=== PATIENT | female | born 1975 | race Caucasian/White ===

== ENCOUNTER 2017-08-29 09:46 | Emergency (ER) | payer OTHER, MEDICAID ==
[~2017-08-29] VITALS: Ht 154.9 cm; Wt 108.9 kg
[2017-08-29] MEDS ORDERED: HYDROCODONE-AP1 EAC6 PO (11:46)
[2017-08-29 12:38] VITALS: BP 105/54
== END 2017-08-29 12:39 | disposition home or self-care (01) ==
LOC: M.ERS 09:46
DX: M25.551 Pain in right hip (principal); M25.561 Pain in right knee; J45.909 Unspecified asthma, uncomplicated; E11.9 Type 2 diabetes mellitus without complications

== ENCOUNTER 2017-12-23 12:01 | Inpatient (IN) | payer OTHER, MEDICAID ==
[~2017-12-23] VITALS: Ht 154.9 cm; Wt 110.2 kg
[2017-12-23] VITALS (14 sets, daily range): BP systolic 116–160; BP diastolic 73–97
[~2017-12-23 12:01] MED LIST: HYDROCODONE-AP1 EAC6 PO
[2017-12-23 12:31] LABS: ABSOLUTE BASOPHILS 0.1 thou/uL (0.0-0.2); ABSOLUTE EOSINOPHILS 0.2 thou/uL (0.0-0.7); ABSOLUTE LYMPHOCYTES 2.5 thou/uL (0.8-5.3); ABSOLUTE MONOCYTES 0.6 thou/uL (0.0-1.2); ABSOLUTE NEUTROPHILS 6.1 thou/uL (1.6-8.1); BASOPHILS 0.9 %; HEMOGLOBIN 13.3 gm/dL (12.0-15.0); LYMPHOCYTES 26.7 %; MCH 27.4 pg (26.0-34.0); MCHC 33.4 g/dL (28.0-37.0); MCV 82.2 fL (80.0-100.0); MONOCYTES 6.3 %; MPV 7.6 fl. (7.2-11.1); NUCLEATED RBCS 0 /100WBC; PLATELET COUNT* 378 thou/uL (150-400); POLYS 64.1 %; RBC 4.86 mil/uL (4.20-5.00); RDW-CV 14.2 % (10.5-14.5); WBC 9.5 thou/uL (4.0-11.0)
[2017-12-23 12:39] LABS: ANION GAP 7 mmol/L (7-16); BUN 7 mg/dL (7-18); CALCIUM 8.6 mg/dL (8.5-10.1); CHLORIDE 103 mmol/L (98-107); CO2 27 mmol/L (21-32); CREATININE 0.8 mg/dL (0.6-1.3); GLUCOSE 218 mg/dL (70-99); SODIUM 137 mmol/L (136-145)
[2017-12-23] MEDS ORDERED: METFORMIN HCL500 MG PO (12:41)
[2017-12-23] MEDS ORDERED: LEXAPRO20 MG PO (12:42)
[2017-12-23] MEDS ORDERED: LIPITOR 20 MG T20 M1 PO (12:42)
[2017-12-23] MEDS ORDERED: CHANTIX1 MG PO (12:43)
[2017-12-23] MEDS ORDERED: NEURONTIN 300300 M1 PO (12:43)
[2017-12-23 12:45] LABS: PROTIME 9.9 Seconds (9.20-11.50)
[2017-12-23 12:46] LABS: ALBUMIN 3.3 g/dL (3.4-5.0); ALKALINE PHOSPHATASE 83 U/L (46-116); SGOT 18 U/L (15-37); SGPT 30 U/L (30-65); TOTAL BILIRUBIN 0.2 mg/dL (<0.1-1.0); TOTAL PROTEIN 7.6 g/dL (6.4-8.2); TROPONIN-I LEVEL <0.06 ng/mL (<0.06)
[2017-12-23 14:55] LABS: CHOLESTEROL 142 mg/dL (<200); HDL CHOLESTEROL 26 mg/dL (>40); LDL CHOLESTEROL 43 mg/dL (<100); TC:HDL 5.5 Ratio (Not establshd); TRIGLYCERIDE 366 mg/dL (<150); VLDL 73 mg/dL (<40)
[2017-12-23 14:59] LABS: SERUM ASSESSMENT Clear
--- NOTE | 2017-12-23 15:01 | EKG ---
[place] [address] ELECTROCARDIOGRAM REPORT Name: KRISTEN CHAPA Room: [address] ADM IN M.R.#: [id number] Admission: 12/23/17 Attend Phys: Cherelle Mccloud MD Discharge: Date of : 79 Report #: [id number] THIS REPORT FOR: //name// [facility] ED Test Date: 2017-12-23 Test Time: 12:20:24 Pat Name: KRISTEN CHAPA Department: Room: [facility] Gender: F Gauge Controller: [place] : 1975 Requested By: Tamir Hay Order Number: [id number] MD: Kendall Hill Measurements Intervals [place] Rate: 86 P: 23 ID: 136 QRS: 17 QRSD: 90 T: 5 QT: 350 QTc: 419 Interpretive Statements Sinus rhythm Baseline wander in lead(s) V1 No previous ECG available for comparison Electronically Signed On 12-23-2017 15:01:32 CDT by Kendall Hill [email or web address] <ELECTRONICALLY SIGNED> By: Kendall Hill MD, [facility] 12/23/17 1501 1220 1220 Kendall Hill MD, FAC /EPI
--- NOTE | 2017-12-23 15:56 | NUR ---
RECIEVED CONSULT FOR POSSIBLE REHAB ADMISSION. CONSULT HAS BEEN ACKNOWLEDGED BY SENIOR COGNOS DEVELOPER AND DR MATTHEWS. PT ADMITTED WITH STROKE. STROKE WORKUP IN PROGRESS. PT/OT/ST EVALUATIONS HAVE BEEN ORDERED AND ARE PENDING. WILL FOLLOW ALONG WITH PATIENT TO SEE RESULTS OF WORKUPS AND EVALUATIONS TO DETERMINE IF PATIENT IN A CANDIDATE FOR ACUTE REHAB. THANK YOU FOR THIS REFERRAL.
--- NOTE | 2017-12-23 16:08 | NUR ---
PT ARRIVED TO UNIT AT 1440. NIH 3. PT A/O X'S 4. TRACING SR. AFEBRILE. PT ON BED REST PER ORDERS. ADMISSION ASSESSMENT COMPLETE. NURSE AT BEDSIDE. NO C/O OF PAIN. PT NPO TILL DINNER PER ORDERS. WILL CONTINUE PLAN OF CARE.
--- NOTE | 2017-12-23 19:02 | NUR ---
NIH CHARTED. PT CONTINUES TO EXPERIENCE NUMBNESS ON LEFT SIDE OF FACE, ARM, LEG. PT REPORTS IMPROVEMENT IN LEFT ARM. PT PASSED SWALLOW EVAL. PT PLACED ON DIET, DR CURRAN.
--- NOTE | 2017-12-23 19:09 | NUR ---
PT REPORTS NUMBNESS IN LEFT ARM IS GONE
--- NOTE | 2017-12-23 21:17 | NUR ---
ASSUMED PT CARE AT 1930. NIH SCORE 2 AT THIS TIME. PT REPORTS LUE NUMBNESS HAS RESOLVED COMPLETELY, FACIAL NUMBNESS PRESENT ALONG L JAW LINE WHICH SHE STATES IS IMPROVED FROM EARLIER TODAY. PT REPORTS NO SENSATION OF LLE WITH ANY TACTILE STIMULATION PERFORMED BY THIS RN, DRIFT PRESENT WHEN HOLDING LLE OFF OF THE BED IN LYING POSITION, HOWEVER SHE IS OTHERWISE ABLE TO MOVE LLE WITH FULL RANGE OF MOTION AND BEAR WEIGHT ON LEG FOR MOVING UP IN BED. PT WAS ASSITED TO BSC, GAIT STEADY AND APPEARS UNINHIBITED.
[2017-12-23 23:31] LABS: URINE BILIRUBIN NEGATIVE (Negative); URINE BLOOD NEGATIVE (Negative); URINE CLARITY CLEAR; URINE COLOR STRAW; URINE GLUCOSE-RANDOM NEGATIVE (Negative); URINE KETONES NEGATIVE (Negative); URINE LEUKOCYTES-REFLEX 1+ (Negative); URINE NITRITE-REFLEX NEGATIVE (Negative); URINE PROTEIN NEGATIVE (Negative); URINE SPECIFIC GRAVITY <= 1.005 (1.005-1.030); URINE UROBILINOGEN 0.2 E.U./dl (0.2-1.0)
[2017-12-23 23:42] LABS: AMP/METHAMP Negative (Negative); BARBITURATES Negative (Negative); BENZODIAZEPINES Negative (Negative); COCAINE Negative (Negative); METHADONE Negative (Negative); OPIATES Negative (Negative); PCP Negative (Negative); THC Negative (Negative)
[2017-12-24] VITALS (23 sets, daily range): BP systolic 114–151; BP diastolic 65–91
[2017-12-24 00:23] LABS: BACTERIA-REFLEX 1-9 Few /HPF (None Seen); CASTS None Seen /LPF (None Seen); CRYSTALS None Seen /LPF (None Seen); SQUAMOUS 0-3 Few /LPF (0-3); URINE RBC None Seen /HPF (0-2); URINE WBC-REFLEX 0-5 Rare /HPF (0-5)
[2017-12-24 02:34] LABS: POC CA IONIZED 4.6 mg/dL (4.5-5.3); POC CREATININE 0.5 mg/dL (0.6-1.3); POC HEMOGLOBIN 13.3 g/dL (12.0-17.0)
[2017-12-24 05:16] LABS: CHOLESTEROL 151 mg/dL (<200); HDL CHOLESTEROL 27 mg/dL (>40); LDL CHOLESTEROL 62 mg/dL (<100); TC:HDL 5.6 Ratio (Not establshd); TRIGLYCERIDE 314 mg/dL (<150); VLDL 63 mg/dL (<40)
[2017-12-24 05:18] LABS: SERUM ASSESSMENT Clear
--- NOTE | 2017-12-24 07:15 | NUR ---
PROGRESSING TOWARD GOALS. NIH 2, PT REPORTS SOME IMPROVEMENT IN LLE NUMBNESS THIS AM. VSS, O2 SAT >95% ON RA. PT HAS DENIED HEADACHE, SOA, CHEST PAIN, AND ANY OTHER DISCOMFORT THIS SHIFT. CONSENT OBTAINED FOR RELEASE OF INFORMATION PER PHYSICIAN REQUEST, FAXED TO [facility] AT [phone] AND [facility] AT [phone]. PT TURNS SELF IN BED WITHOUT DIFFICULTY. ASSISTED TO BSC X3, SBA ONLY. CALL LIGHT WITHIN REACH.
--- NOTE | 2017-12-24 10:11 | NUR ---
PT IS TELEMETRY STATUS AT THIS TIME. NIH 2 FOR SOME NUMBNESS IN LEFT JAW AND LEFT LE, PT ALSO HAS SOME WEAKNESS IN HER LLE. NO COMPLAINTS OF PAIN. ASSESSMENT CHARTED. VSS AT THIS TIME. CT OF HEAD SCHEDULED FOR 1400. PT UP WITHOUT ASSISTANCE IN ROOM TO BATHE AND USE BEDSIDE COMMODE WITHOUT DIFFICULTY. NO OTHER COMPLAINTS AT THIS TIME BUT PATIENT REPORTS THAT SHE IS TIRED. REPORT GIVEN TO ICU NURSE AT THIS TIME THAT WILL BE TAKING OVER PATIENT'S CARE.
--- NOTE | 2017-12-24 10:19 | NUR ---
Nutrition: Pt assessed for nursing risk 2 points. Wt: 249#, stable. H/o DM, HTN, hypercholesterolemia. RX: gabapentin, statin, insulin. Labs: BG 199, alb 3.3, HDL 27, TG 314. ST saw pt, now heart healthy diet, eating 100%. She was admitted for Lt side numbness - appears to be resolving. Per ICU rounds, no nutrition concerns. Low risk.
--- NOTE | 2017-12-24 11:47 | NUR ---
INTERDISICIPLINARY ROUNDS: ATTEMPTED TO MEET WITH PT, WAS WITH THERAPY. PER NURSING, ADMITTED WITH STROKE, HAD TPA. LIVES WITH FIANCE. WILL FOLLOW
--- NOTE | 2017-12-24 15:49 | NUR ---
I have reviewed the documentation by CALE MOON from 01/04 to 12/24/17 and I concur with it. JOHN ROBB
--- NOTE | 2017-12-24 16:57 | NUR ---
REPORT GIVEN TO TELEMETRY NURSE. NIH REMAINS 2. ASSESSMENT CHARTED. VSS. PT UP WALKIUNG AROUND WITH PHYSICAL THERAPY TODAY WITHOUT DIFFICULTY. NO COMPLAINTS OF PAIN.
[2017-12-24 17:09] LABS: GLYCOHEMOGLOBIN (HGB A1C) 8.2 % (4.8-5.6)
[2017-12-25] VITALS: BP 125/62
[2017-12-25 04:43] VITALS: BP 104/76
--- NOTE | 2017-12-25 07:44 | NUR ---
PATIENT RESTED WELL THROUGH THE NIGHT. NIH CHARTED. UP AD FRANCISCO IN ROOM. DENIES NEEDS. WILL MONITOR. REPORT GIVEN TO ONCOMING NURSE.
[2017-12-25 09:00] VITALS: BP 131/78
[2017-12-25 10:57] VITALS: BP 104/76
[2017-12-25 10:58] VITALS: BP 104/76
[2017-12-25] MEDS ORDERED: GLYBURIDE 2.52.5 MG PO (11:10)
[2017-12-25] MEDS ORDERED: GEMFIBROZIL 60600 MG PO (11:10)
[2017-12-25] MEDS ORDERED: ASPIRIN325 PO (11:12)
--- NOTE | 2017-12-25 11:45 | NUR ---
ASSUMED PT CARE AT 0700 PT IS ALERT AND ORIENTED X 4 PT DENIES PAIN OR SOA ON RA. PT IS UP AD FRANCISCO PT IS NOT A FALL RISK, PT IS SR ON THE MONITOR, PT WHILE WORKING WITH PHYSICAL THERAPY C/O LIGHTHEADNESS CHECKED PT BLOOD SUGAR PT WAS STARTED ON NEW MEDICATION FOR DIABETES CONTROL BLOOD SUGAR NOT LOW, PHYSICAL THERAPY GAVE PT WALKER AND PT AMBULATES BETTER WITH WALKER, PT HAS ORDERS FOR ECHO AND DISCHARGE THIS NURSE PAGED PHYSICIAN FOR CLEARANCE TO [facility], WILL CONTINUE TO MONITOR
[2017-12-25 12:00] VITALS: BP 116/56
--- NOTE | 2017-12-25 13:22 | NUR ---
[employer]: Met with patient, discussed discharge plans. No questions at this time. Reviewed signs and symptoms of stroke and to make family aware of these. No other concerns at this time.
--- NOTE | 2017-12-25 14:18 | NUR ---
CONTINUING TO FOLLOW PATIENT ALONG WITH DR. MATTHEWS. PATIENT IS S/P TPA, NEUROLOGY CONSULT COMPLETE, MRI SHOWED NO EVIDENCE OF STROKE. 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 PATIENT IS INDEPENDENT WITH TRANSFERS AND SBA WITH GAIT FOR PT. REQUIRED SOME ASSIST WITH LE DRESSING AND BATHING WITH OT AND MILD COGNITIVE DEFICITS WITH ST. PATIENT IS HIGHER LEVEL AND WOULD BENEFIT FROM CONTINUED THERAPIES FOR STRENGTHENING WITH HH VS. OP THERAPY. WILL CONTINUE TO FOLLOW THROUGH HOSPITAL COURSE AND RECONSIDER SHOULD SYMPTOMS OR DEFICITS WORSEN.
--- NOTE | 2017-12-25 14:19 | 2DMMODE ---
[place] [address] 2 D/M-MODE ECHOCARDIOGRAM Name: KRISTEN CHAPA Room: [address] IN [facility]#: [id number] Admission: 12/23/17 Attend Phys: Cherelle Mccloud, Discharge: Date of : 79 Date of Service: 12/25/17 1419 Report #: [id number] THIS REPORT FOR: //name// APPROVED REPORT Study performed: 12/25/2017 11:15:15 EXAM: Comprehensive 2D, Doppler, and color-flow Echocardiogram Patient Location: In-Patient Room #: 210 Status: routine BSA: 2.07 HR: 71 bpm BP: 104/76 mmHg Rhythm: NSR Other Information Study Quality: Good Indications CVA/TIA Echo Enhancing Agent Indication: Rule out Shunt Agent(s) / Amount(s) Used: Agitated Saline 10 cc 2D Dimensions LVEF(%): 68.00 (>50%) IVSd: 10.10 (7-11mm) LVOT Diam: 20.29 (18-24mm) LVDd: 37.05 mm PWd: 7.80 (7-11mm) Ascending Ao: 25.90 (22-36mm) LVDs: 23.27 (25-40mm) Aortic Root: 30.49 mm Fragoso's LVEF: 68.00 % Volumes Left Atrial Volume (Systole) LA ESV Index: 19.80 mL/m2 Aortic Valve AoV Peak Faraz.: 1.33 m/s AO Peak Gr.: 7.03 mmHg LVOT Max P.32 mmHg AO Mean Gr.: 3.67 mmHg LVOT Mean P.86 mmHg LVOT Max V: 1.04 m/s AO V2 VTI: 20.34 cm LVOT Mean V: 0.61 m/[place] [address] 2 D/M-MODE ECHOCARDIOGRAM Name: KRISTEN CHAPA Room: [address] IN [facility]#: [id number] Admission: 12/23/17 Attend Phys: Cherelle Mccloud, Discharge: Date of : 79 Date of Service: 12/25/17 1419 Report #: [id number] [place] (VTI): 2.94 cm2 LVOT V1 VTI: 18.47 cm Mitral Valve E/A Ratio: 1.25 MV Decel. Time: 241.83 ms MV E Max Faraz.: 0.68 m/s MV PHT: 70.13 ms MVA (PHT): 3.14 cm2 TDI E/Lateral E': 4.86 E/Medial E': 5.67 Medial E' Faraz.: 0.12 m/s Lateral E' Faraz.: 0.14 m/s Pulmonary Valve PV Peak Faraz.: 1.25 m/s PV Peak Gr.: 6.28 mmHg Left Ventricle The left ventricle is normal size. There is normal LV segmental wall motion. There is normal left ventricular wall thickness. Left ventricular systolic function is normal. The left ventricular ejection fraction is within the normal range. LVEF is 55-60%. The left ventricular diastolic function is normal. Right Ventricle The right ventricle is normal size. The right ventricular systolic function is normal. Atria The left atrium size is normal. Interatrial septum is intact without evidence of ASD or PFO. The right atrium size is normal. Aortic Valve The aortic valve is normal in structure. No aortic regurgitation is present. There is no aortic valvular stenosis. Mitral Valve The mitral valve is normal in structure. There is no mitral valve regurgitation noted. No evidence of mitral valve stenosis. Tricuspid Valve The tricuspid valve is normal in structure. There is no tricuspid valve regurgitation noted. Pulmonic Valve The pulmonary valve is normal in structure. [place] [address] 2 D/M-MODE ECHOCARDIOGRAM Name: KRISTEN CHAPA Room: [address] IN .#: [id number] Admission: 12/23/17 Attend Phys: Cherelle Mccloud, Discharge: Date of : 79 Date of Service: 12/25/17 1419 Report #: [id number] valvular regurgitation. Great Vessels The aortic root is normal in size. IVC is normal in size and collapses with >50% inspiration Pericardium There is no pericardial effusion. <Conclusion> The left ventricle is normal size. There is normal left ventricular wall thickness. Left ventricular systolic function is normal. The left ventricular ejection fraction is within the normal range. LVEF is 55-60%. The left ventricular diastolic function is normal. The right ventricle is normal size. The left atrium size is normal. The aortic valve is normal in structure. The mitral valve is normal in structure. The tricuspid valve is normal in structure. IVC is normal in size and collapses with >50% inspiration There is no pericardial effusion. There is normal LV segmental wall motion. <ELECTRONICALLY SIGNED> By: Kendall Hill MD, FACC 12/25/17 1419 1419 1419 Kendall Hill MD, FACC /INF
== END 2017-12-25 14:45 | disposition home or self-care (01) | DRG 74 ==
LOC: M.ERS 12:01 → M.TBA-ER 13:06 → M.ICU 13:06 → M.2W 12-24 17:11
PROVIDERS: Emergency Medicine Emergency Medical Services; ADMIT Internal Medicine
DX: E11.42 Type 2 diabetes mellitus with diabetic polyneuropathy (principal); J45.909 Unspecified asthma, uncomplicated; I10 Essential (primary) hypertension; M79.7 Fibromyalgia; F17.210 Nicotine dependence, cigarettes, uncomplicated; E78.2 Mixed hyperlipidemia; G57.22 Lesion of femoral nerve, left lower limb; Z79.899 Other long term (current) drug therapy; Z71.6 Tobacco abuse counseling

== ENCOUNTER 2018-03-23 11:53 | Observation (INO) | payer OTHER, MEDICAID ==
[~2018-03-23] VITALS: Ht 154.9 cm; Wt 111.6 kg
[~2018-03-23 11:53] MED LIST changes: +ASPIRIN325 PO; +CHANTIX1 MG PO; +GEMFIBROZIL 60600 MG PO; +GLYBURIDE 2.52.5 MG PO; +LEXAPRO20 MG PO; +LIPITOR 20 MG T20 M1 PO; +METFORMIN HCL500 MG PO; +NEURONTIN 300300 M1 PO
[2018-03-23 12:00] VITALS: BP 134/87
[2018-03-23] MEDS ORDERED: WELLBUTRIN XL150 MG PO (12:11)
[2018-03-23] MEDS ORDERED: BUSPIRONE HCL10 MG PO (12:11)
[2018-03-23 12:22] LABS: ABSOLUTE BASOPHILS 0.1 thou/uL (0.0-0.2); ABSOLUTE EOSINOPHILS 0.2 thou/uL (0.0-0.7); ABSOLUTE LYMPHOCYTES 2.8 thou/uL (0.8-5.3); ABSOLUTE MONOCYTES 0.7 thou/uL (0.0-1.2); ABSOLUTE NEUTROPHILS 7.5 thou/uL (1.6-8.1); BASOPHILS 0.7 %; EOSINOPHILS 1.7 %; HEMOGLOBIN 14.5 gm/dL (12.0-15.0); MCH 27.6 pg (26.0-34.0); MCHC 33.7 g/dL (28.0-37.0); MONOCYTES 6.2 %; MPV 7.9 fl. (7.2-11.1); NUCLEATED RBCS 0 /100WBC; PLATELET COUNT* 365 thou/uL (150-400); POLYS 66.4 %; RBC 5.24 mil/uL (4.20-5.00); RDW-CV 13.8 % (10.5-14.5); WBC 11.3 thou/uL (4.0-11.0)
[2018-03-23 12:36] LABS: ANION GAP 7 mmol/L (7-16); BUN 9 mg/dL (7-18); CHLORIDE 100 mmol/L (98-107); CO2 27 mmol/L (21-32); CREATININE 0.9 mg/dL (0.6-1.3); GLUCOSE 196 mg/dL (70-99); POTASSIUM 3.6 mmol/L (3.5-5.1); SODIUM 134 mmol/L (136-145)
[2018-03-23 12:46] LABS: ALBUMIN 3.6 g/dL (3.4-5.0); ALKALINE PHOSPHATASE 82 U/L (46-116); LIPASE 175 U/L (73-393); NT-PRO BRAIN NAT PEPTIDE 49 pg/mL (<300); SGOT 25 U/L (15-37); SGPT 31 U/L (30-65); TOTAL BILIRUBIN 0.3 mg/dL (<0.1-1.0); TOTAL PROTEIN 7.9 g/dL (6.4-8.2); TROPONIN-I LEVEL <0.06 ng/mL (<0.06)
[2018-03-23 13:59] VITALS: BP 132/75
[2018-03-23 14:05] VITALS: BP 149/93
[2018-03-23] MEDS ORDERED: LISINOPRIL10 MG PO (15:09)
[2018-03-23] MEDS ORDERED: JANUVIA100 MG PO (15:10)
[2018-03-23] MEDS ORDERED: INVOKANA300 MG PO (15:11)
[2018-03-23] MEDS ORDERED: FISH OIL 1,001000 M2 PO (15:12)
[2018-03-23] MEDS ORDERED: LEVEMIR SUBQ (15:12)
[2018-03-23] MEDS ORDERED: CLARITIN10 MG PO (15:13)
[2018-03-23 15:39] VITALS: BP 127/80
[2018-03-23 20:00] VITALS: BP 112/60
[2018-03-23 23:08] VITALS: BP 124/66
[2018-03-24 04:00] VITALS: BP 120/66
[2018-03-24 08:00] VITALS: BP 119/66
--- NOTE | 2018-03-24 11:45 | EKG ---
[place] [address] ELECTROCARDIOGRAM REPORT Name: KRISTEN CHAPA Room: [address] ADM IN [facility]#: [id number] Admission: 03/23/18 Attend Phys: Erwin Ricks Discharge: Date of : 79 Report #: [id number] THIS REPORT FOR: //name// [facility] Test Date: 2018-03-23 Test Time: 20:16:06 Pat Name: KRISTEN CHAPA Department: Room: [facility] Gender: F Legal Activity Adjudicator: : 1975 Requested By: Zachery Flowers Order Number: [id number] MD: Glen Calero Measurements Intervals [place] Rate: 88 P: 26 SD: 149 QRS: 41 QRSD: 94 T: 29 QT: 380 QTc: 460 Interpretive Statements Sinus rhythm Electronically Signed On 03-24-2018 11:44:56 POULTRY [employer]ESSING WORKER by Glen Calero [email or web address] <ELECTRONICALLY SIGNED> By: Glen Calero MD, [facility] 03/24/18 1144 15 15 Glen Calero MD, FACC /EPI
[2018-03-24 11:47] VITALS: BP 119/62
[2018-03-24 14:21] VITALS: BP 119/62
[2018-03-24] MEDS ORDERED: FLAGYL500 MG PO (14:33)
--- NOTE | 2018-03-24 16:21 | EKG ---
[place] [address] ELECTROCARDIOGRAM REPORT Name: KRISTEN CHAPA Room: [address] ADM IN [facility]#: [id number] Admission: 03/23/18 Attend Phys: Erwin Ricks Discharge: Date of : 79 Report #: [id number] THIS REPORT FOR: //name// [facility] ED Test Date: 2018-03-23 Test Time: 12:13:34 Pat Name: KRISTEN CHAPA Department: Room: [address] Gender: F Floor Assembler: Erwin EMERY : 1975 Requested By: Zachery Flowers Order Number: [id number] MD: Glen Calero Measurements Intervals [place] Rate: 94 P: 19 NE: 140 QRS: -4 QRSD: 91 T: 7 QT: 351 QTc: 439 Interpretive Statements Sinus rhythm Inferior infarct, old Compared to ECG 12/23/2017 12:20:24 no change Electronically Signed On 03-24-2018 16:21:05 BED LASTER by Glen Calero [email or web address] <ELECTRONICALLY SIGNED> By: Glen Calero MD, [facility] 03/24/18 1621 1213 121 Glen Calero MD, [facility] /EPI
--- NOTE | 2018-03-26 10:04 | CON ---
[address] [address] CONSULTATION Name: KRISTEN CHAPA Room: [address] Ramon Montero#: [id number] Admission: 03/23/18 Attend Phys: Erwin Ricks Discharge: 03/24/18 Date of : 79 Report #: [id number] THIS REPORT FOR: //name// CC: FAM unknown [facility] Wilbert Fatima DATE OF SERVICE: 03/23/2018 HISTORY OF PRESENT ILLNESS: This is a 42-year-old female patient who was evaluated by me for the left-sided numbness. She is pretty nonspecific about her symptoms. When I asked her, she said it started yesterday. She provided a different history to Emergency Room physician. This came spontaneously and she is also complaining of some carey-paraesthesias. There is not much associated weakness. She complained of some dry heaves. She checked her blood sugar, it was about 300. REVIEW OF SYSTEMS: I carried out the 14-point review of systems and this patient had exactly same symptoms. She was seen by Dr. Mantilla. She received tPA. Extensive workup including MRI was normal. I got an MRI done now and that is also normal. She indicates she has been to [facility]. They have made an appointment with some neurologist at [facility]. She is scheduled to have an EMG done. She may have had an EMG done of the left lower extremity. All these things are very sketchy at best. She had some nonspecific dizziness. She has a history of fibromyalgia. She has a history of diabetes. She has a history of asthma and hypertension. She has a history of depression and neuropathy. That was her relevant 14-point review of systems, which I carried out. The 14-point review of systems was otherwise noncontributory. PAST MEDICAL HISTORY: Positive for similar symptoms with negative workup. FAMILY HISTORY: Noncontributory. SOCIAL HISTORY: She denies the use of alcohol on a regular basis. PHYSICAL EXAMINATION: Indicates she is alert, responsive. Her speech, concentration, fund of knowledge and memory is at her baseline. Cranial nerve examination 2-12 looks mostly unremarkable. She complained of subjective numbness on the left side. She also has weakness in the left leg. It is going on since last time. She takes longer to do the position sense. I could not look at the fundus. She is obese individual who does not have any dysmorphic features of eyes, ears and face. Cardiac examination is unremarkable. Blood pressure is 127/80, pulse is 72, temperature is 97.7. LABORATORY DATA: White count is 11.3. Sodium is 134. Her last B12 and TSH were normal. [place] [address] CONSULTATION Name: KRISTEN CHAPA Kend[place] Room: [address] Ramon Montero#: [id number] Admission: 03/23/18 Attend Phys: Erwin Ricks Discharge: 03/24/18 Date of : 79 Report #: [id number] IMPRESSION: Because of normal MRI it is unlikely that the patient's symptoms are because of stroke or transient ischemic attack. She recently had full workup and that was also negative. The patient may have neuropathy or carpal tunnel syndrome that need to be worked up as an outpatient. She also may have some psychological overlay. RECOMMENDATIONS: 1. MRI of the C-spine. 2. As an outpatient she needs an EMG. 3. She has an appointment with her own neurologist. She can keep that since we do not have the EMG machine here. I discussed the patient with Dr. Flowers from Emergency Room in detail and reviewed her record extensively. More than 50 minutes of time was spent taking care of this patient and majority of that time was spent counseling the patient and coordinating her care. <ELECTRONICALLY SIGNED> By: Maikel Villegas MD 03/26/18 1004 1653 [id number] Villegas MD /nt
== END 2018-03-24 16:53 | disposition home or self-care (01) ==
LOC: M.ERS 11:53 → M.TBA-ER 13:15 → M.2W 13:15
PROVIDERS: Emergency Medicine; ADMIT Internal Medicine
DX: M48.02 Spinal stenosis, cervical region (principal); I10 Essential (primary) hypertension; E11.42 Type 2 diabetes mellitus with diabetic polyneuropathy; R19.7 Diarrhea, unspecified; F32.9 Major depressive disorder, single episode, unspecified; F17.200 Nicotine dependence, unspecified, uncomplicated; J45.909 Unspecified asthma, uncomplicated; Z79.4 Long term (current) use of insulin; Z79.899 Other long term (current) drug therapy; Z79.82 Long term (current) use of aspirin

== ENCOUNTER 2018-06-01 19:18 | Emergency (ER) | payer OTHER, MEDICAID ==
[~2018-06-01] VITALS: Ht 154.9 cm; Wt 99.8 kg
[~2018-06-01 19:18] MED LIST changes: +BUSPIRONE HCL10 MG PO; +CLARITIN10 MG PO; +FISH OIL 1,001000 M2 PO; +FLAGYL500 MG PO; +INVOKANA300 MG PO; +JANUVIA100 MG PO; +LEVEMIR SUBQ; +LISINOPRIL10 MG PO; +WELLBUTRIN XL150 MG PO
[2018-06-01] MEDS ORDERED: MEDROLDOSEPACK PO (19:35)
[2018-06-01] MEDS ORDERED: PENICILLIN VK500 MG PO (19:35)
[2018-06-01 19:42] VITALS: BP 149/89
== END 2018-06-01 19:43 | disposition home or self-care (01) ==
LOC: M.ERS 19:18
DX: J02.9 Acute pharyngitis, unspecified (principal); Z20.818 Contact with and (suspected) exposure to other bacterial communicable diseases; F17.200 Nicotine dependence, unspecified, uncomplicated; J45.909 Unspecified asthma, uncomplicated; E11.9 Type 2 diabetes mellitus without complications; I10 Essential (primary) hypertension; M79.7 Fibromyalgia; Z79.4 Long term (current) use of insulin

== ENCOUNTER 2018-08-18 18:58 | Emergency (ER) | payer OTHER, MEDICAID ==
[~2018-08-18] VITALS: Ht 154.9 cm; Wt 107.0 kg
[~2018-08-18 18:58] MED LIST changes: +MEDROLDOSEPACK PO; +PENICILLIN VK500 MG PO
[2018-08-18] MEDS ORDERED: VICODIN 5-3001 EACH (19:09)
[2018-08-18] MEDS ORDERED: NABUMETONE 750750 M1 PO (20:31)
[2018-08-18 20:55] VITALS: BP 131/66
== END 2018-08-18 20:57 | disposition home or self-care (01) ==
LOC: M.ERS 18:58
DX: S90.32XA Contusion of left foot, initial encounter (principal); J45.909 Unspecified asthma, uncomplicated; E11.9 Type 2 diabetes mellitus without complications; M79.7 Fibromyalgia; I10 Essential (primary) hypertension; Z98.890 Other specified postprocedural states; Z79.4 Long term (current) use of insulin; W20.8XXA Other cause of strike by thrown, projected or falling object, initial encounter; Y92.89 Other specified places as the place of occurrence of the external cause; Y93.89 Activity, other specified; Y99.8 Other external cause status

== ENCOUNTER 2018-12-27 21:09 | Emergency (ER) | payer OTHER, MEDICAID ==
[~2018-12-27] VITALS: Ht 154.9 cm; Wt 99.8 kg
[~2018-12-27 21:09] MED LIST changes: +NABUMETONE 750750 M1 PO; +VICODIN 5-3001 EACH
[2018-12-27] MEDS ORDERED: NORCO 5-325 TA1 EAC1 PO (22:38)
[2018-12-27] MEDS ORDERED: FLEXERIL PO (22:38)
[2018-12-27 22:56] VITALS: BP 131/79
== END 2018-12-27 22:57 | disposition home or self-care (01) ==
LOC: M.ERS 21:09
DX: S80.01XA Contusion of right knee, initial encounter (principal); M54.5 Low back pain; M25.571 Pain in right ankle and joints of right foot; E11.40 Type 2 diabetes mellitus with diabetic neuropathy, unspecified; I10 Essential (primary) hypertension; M79.7 Fibromyalgia; J45.909 Unspecified asthma, uncomplicated; F17.210 Nicotine dependence, cigarettes, uncomplicated; Z79.4 Long term (current) use of insulin; Z98.890 Other specified postprocedural states; W01.0XXA Fall on same level from slipping, tripping and stumbling without subsequent striking against object, initial encounter; Y92.89 Other specified places as the place of occurrence of the external cause; Y93.89 Activity, other specified; Y99.8 Other external cause status

== ENCOUNTER 2019-05-18 17:11 | Emergency (ER) | payer OTHER, MEDICAID ==
[~2019-05-18] VITALS: Ht 154.9 cm; Wt 98.0 kg
[~2019-05-18 17:11] MED LIST changes: +FLEXERIL PO; +NORCO 5-325 TA1 EAC1 PO
[2019-05-18] MEDS ORDERED: FLEXERIL PO (19:35)
[2019-05-18 19:40] VITALS: BP 135/88
== END 2019-05-18 19:42 | disposition home or self-care (01) ==
LOC: M.ERS 17:11
DX: S80.01XA Contusion of right knee, initial encounter (principal); S40.021A Contusion of right upper arm, initial encounter; J45.909 Unspecified asthma, uncomplicated; E11.9 Type 2 diabetes mellitus without complications; M79.7 Fibromyalgia; I10 Essential (primary) hypertension; F17.210 Nicotine dependence, cigarettes, uncomplicated; Z98.890 Other specified postprocedural states; W01.0XXA Fall on same level from slipping, tripping and stumbling without subsequent striking against object, initial encounter; Y93.89 Activity, other specified; Y92.89 Other specified places as the place of occurrence of the external cause; Y99.8 Other external cause status

== ENCOUNTER 2020-03-11 17:45 | Emergency (ER) | payer OTHER, MEDICAID ==
[~2020-03-11] VITALS: Ht 154.9 cm; Wt 98.4 kg
[2020-03-11 19:21] VITALS: BP 126/70
== END 2020-03-11 19:21 | disposition home or self-care (01) ==
LOC: M.ERS 17:45
DX: S63.501A Unspecified sprain of right wrist, initial encounter (principal); J45.909 Unspecified asthma, uncomplicated; E11.9 Type 2 diabetes mellitus without complications; M79.7 Fibromyalgia; I10 Essential (primary) hypertension; F17.210 Nicotine dependence, cigarettes, uncomplicated; Z79.899 Other long term (current) drug therapy; Z79.4 Long term (current) use of insulin; W22.8XXA Striking against or struck by other objects, initial encounter; Y93.89 Activity, other specified; Y92.89 Other specified places as the place of occurrence of the external cause; Y99.8 Other external cause status